=== PATIENT | female | born 1975 | race American Indian/Alaskan Native ===

== ENCOUNTER 2017-10-07 04:21 | Emergency (ER) | payer BC, MEDICAID ==
[2017-10-07 05:13] LABS: Basophils % (Auto) 0.2 % (0.0-1.8); Eosinophils # (Auto) 0.4 K/mm3 (0.0-0.4); Eosinophils % (Auto) 5.6 % (0.0-4.3); Hematocrit 36.9 % (30.3-42.9); Hemoglobin 12.2 gm/dl (10.1-14.3); Lymphocytes # (Auto) 2.1 K/mm3 (1.2-5.4); Lymphocytes % (Auto) 32.4 % (13.4-35.0); Mean Corpuscular HGB Conc 33 % (30-34); Mean Corpuscular Hemoglobin 29 pg (28-32); Mean Corpuscular Volume 86 fl (79-97); Monocytes # (Auto) 0.7 K/mm3 (0.0-0.8); Monocytes % (Auto) 11.5 % (0.0-7.3); Platelet Count 265 K/mm3 (140-440); Red Blood Count 4.27 M/mm3 (3.65-5.03); Red Cell Distribution Width 16.4 % (13.2-15.2)
[2017-10-07 05:28] LABS: BUN/Creatinine Ratio 14; Blood Urea Nitrogen 10 mg/dL (7-17); Calcium 8.9 mg/dL (8.4-10.2); Hemolysis Index 2
--- NOTE | 2017-10-07 06:18 | XRay Report ---
FINAL REPORT EXAM: XR RIBS UNILAT 2V LT HISTORY: mid back and rib pain, pain on deep breaths TECHNIQUE: Two views of the left ribs were obtained. FINDINGS: There is no evidence acute rib fracture or pleural effusion. There is no evidence of pneumothorax. IMPRESSION: Negative exam.
--- NOTE | 2017-10-07 11:38 | Emergency Department Report ---
HPI - General Chief Complaint: Back Pain/Injury Time Seen by Provider: 10/07/17 11:19 - HPI HPI: This is a 42-year-old female well-nourished well-developed here complaining of back pain which started Friday. She said pain left upper back and rib cage. It is worse when touched. She reports some pain with breathing in. Denies any chest pain, shortness of breath, fever or chills. Reports some abdominal pain to left upper quadrant and also epigastric area. She denies any nausea or vomiting. Denies any personal or family history of blood clot. Denies numbness onto her legs. Denies any urinary burning and frequency urgency. She reports that she feels bloated but says she has normal bowel movement and that she feels bloated when she eats and have increased pressure in her back. Pain is 8 out of 10 and worse to touch. [id number] medications not helping. Past medical history of hypertension. Denies any history of heart disease. Denies any chest pain. Denies taking control. Denies any travel long distance recently for more than 3 hours. Last menstrual period was 09/18/2017. Denies any vaginal bleeding or discharge ED Past Medical Hx - Past Medical History Previous Medical History?: Yes Hx Hypertension: Yes Additional medical history: gastric ulcers, PUD - Surgical History Past Surgical History?: Yes Additional Surgical History: tubal ligation. - Family History Family history: hypertension - Social History Smoking Status: Never Smoker Substance Use Type: None - Medications Home Medications: Home Medications Medication Instructions Recorded Confirmed Last Taken Type Dicyclomine [Bentyl] 20 mg PO QID #20 tablet 10/13/13 Unknown Rx Docusate Sodium [Colace] 100 mg PO BID PRN #30 capsule 10/13/13 Unknown Rx Famotidine [Pepcid] 40 mg PO QHS #30 tablet 10/13/13 Unknown Rx Cyclobenzaprine [Flexeril 10mg] 10 mg PO TID PRN #30 tablet 03/22/14 Unknown Rx Ibuprofen [Motrin] 800 mg PO Q8H #30 tablet 03/22/14 Unknown Rx traMADol [Ultram 50 MG tab] 50 mg PO Q6HR PRN #20 tablet 03/22/14 Unknown Rx HYDROcodone/APAP 5-325 [[place] 1 each PO Q6HR PRN #10 tablet 07/01/15 Unknown Rx 5/325] Ketorolac [Toradol] 10 mg PO Q6H PRN #20 tablet 07/01/15 Unknown Rx Nitrofurantoin [place]/M-Cryst 100 mg PO Q12HR 7 Days capsule 07/01/15 Unknown Rx [Macrobid CAP] Acetaminophen/Codeine [Tylenol #3] 1 tab PO Q6H PRN #15 tab 08/07/15 Unknown Rx Guaifenesin/Pseudoephedrne HCl 1 each PO Q12HR #10 tab.er.12h 08/07/15 Unknown Rx [Mucinex D ER 600-60 mg Tablet] Levofloxacin [Levaquin] 750 mg PO QDAY #5 tablet 08/07/15 Unknown Rx Ibuprofen [Motrin] 800 mg PO Q8HR PRN #20 tablet 07/09/16 Unknown Rx traMADol [Ultram] 50 mg PO Q6HR PRN #12 tablet 10/07/17 Unknown Rx ED Review of Systems ROS: Stated complaint: BACK PAIN Other details as noted in HPI Comment: All other systems reviewed and negative Eyes: denies: vision change ENT: denies: throat pain Respiratory: no symptoms reported Cardiovascular: denies: chest pain, palpitations, dyspnea on exertion, edema, syncope, paroxysmal nocturnal dyspnea Gastrointestinal: abdominal pain, other (bloated). denies: nausea, vomiting, diarrhea, constipation, hematemesis, melena, hematochezia Genitourinary: denies: urgency, dysuria, frequency, hematuria, discharge, abnormal menses, dyspareunia Musculoskeletal: back pain. denies: joint swelling, arthralgia, myalgia Skin: denies: rash Neurological: denies: headache, weakness, numbness, paresthesias, confusion, abnormal gait, vertigo Physical Exam - Physical Exam Vital Signs: Vital Signs 10/07/17 10/07/17 04:27 08:08 Temperature 98.3 F 98.4 F Pulse Rate 79 68 Respiratory 18 20 Rate Blood Pressure 136/96 130/89 O2 Sat by Pulse 99 100 Oximetry General: This is a 42-year-old female well-nourished well-developed in no acute distress. Physical Exam: Head: Normocephalic, atraumatic, no abrasion, no bruising and no contusion. Eyes: Biateral pupils equal and reactive to light, bilateral EOM intact.. Bilateral conjunctival and sclera without injection, normal accommodation. No nystagmus Mouth: Moist, no pharyngeal exudate or erythema. No peritonsillar abscesses. Uvula is midline and oral airways patent. Neck: Supple, No Cervical adenopathy, full range of motion and no C-spine tenderness. No swelling or tracheal deviation normal reflexes Cardiovascular: S1, S2. Regular rate and rhythm. No murmur. Capillary refill is less then 3 seconds. Lungs: Clear to auscultate bilaterally. No rhonchi, wheezes or rales. No chest wall tenderness. No chest contusion. No bruising to chest. MSK: Strength 5/5 in all extremities. No joint deformity or crepitus. Normal inspection. Full range of motion to all extremities. No laceration, abrasion or ecchymotic area noted. Patient able to fully flex and extend bilateral knees without any difficulties. Bilateral knees nontender to palpate. Abdomen: Non-tender to palpate in all quadrants, no guarding or rebound tenderness, positive bowel sounds in all quadrants. No CVA tenderness. No hernia, bruit or mass. No rigidity or distention. Extremities: No clubbing, cyanosis or edema. +2 pulses. No neurovascular compromise Skin: Clean, dry and intact. No rash or lesions. Neurological: GCS at 15, Pt is alert and oriented 3 speech is clear . 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 Normal gait. Negative Romberg and no pronator drift. Normal Reflexes. No motor or sensory deficit Back: No vertebral tenderness, no paraspinal tenderness. Ambulates without any difficulties. Psych: Normal mood and behavior ED Course Vital Signs 10/07/17 10/07/17 04:27 08:08 Temperature 98.3 F 98.4 F Pulse Rate 79 68 Respiratory 18 20 Rate Blood Pressure 136/96 130/89 O2 Sat by Pulse 99 100 Oximetry - Reevaluation(s) Reevaluation #1: 10/07/17 15:19 Patient stable, Toradol 60 mg IM given and pain is controlled. She was updated on lab results, xray and ultrasound results. Tolerating fluids well ED Medical Decision Making - Lab Data Result diagrams: 10/07/17 04:58 10/07/17 04:58 Lab Results 02/20/18 02/20/18 02/20/18 Range/Units 04:58 04:58 04:58 WBC 6.4 (4.5-11.0) K/mm3 RBC 4.27 (3.65-5.03) M/mm3 Hgb 12.2 (10.1-14.3) gm/dl Hct 36.9 (30.3-42.9) % MCV 86 (79-97) fl MCH 29 (28-32) pg MCHC 33 (30-34) % RDW 16.4 H (13.2-15.2) % Plt Count 265 (140-440) K/mm3 Lymph % (Auto) 32.4 (13.4-35.0) % [place] % (Auto) 11.5 H (0.0-7.3) % Eos % (Auto) 5.6 H (0.0-4.3) % Baso % (Auto) 0.2 (0.0-1.8) % Lymph # 2.1 (1.2-5.4) K/mm3 [place] # 0.7 (0.0-0.8) K/mm3 Eos # 0.4 (0.0-0.4) K/mm3 Baso # 0.0 (0.0-0.1) K/mm3 Seg Neutrophils % 50.3 (40.0-70.0) % Seg Neutrophils # 3.2 (1.8-7.7) K/mm3 Sodium 142 (137-145) mmol/L Potassium 4.4 (3.6-5.0) mmol/L Chloride 105.8 (98-107) mmol/L Carbon Dioxide 25 (22-30) mmol/L Anion Gap 16 mmol/L BUN 10 (7-17) mg/dL Creatinine 0.7 (0.7-1.2) mg/dL Estimated GFR > 60 ml/min BUN/Creatinine Ratio 14 % Glucose 91 (65-100) mg/dL Calcium 8.9 (8.4-10.2) mg/dL HCG, Qual Negative (Negative) Urine Color (Yellow) Urine Turbidity (Clear) Urine pH (5.0-7.0) Ur Specific [place] (1.003-1.030) Urine Protein (Negative) mg/dL Urine Glucose (UA) (Negative) mg/dL Urine Ketones (Negative) mg/dL Urine Blood (Negative) Urine Nitrite (Negative) Urine Bilirubin (Negative) Urine Urobilinogen (<2.0) mg/dL Ur Leukocyte Esterase (Negative) Urine WBC (Auto) (0.0-6.0) /HPF Urine RBC (Auto) (0.0-6.0) /HPF U Epithel Cells (Auto) (0-13.0) /HPF Urine Mucus /HPF 10/07/17 Range/Units 11:31 WBC (4.5-11.0) K/mm3 RBC (3.65-5.03) M/mm3 Hgb (10.1-14.3) gm/dl Hct (30.3-42.9) % MCV (79-97) fl MCH (28-32) pg MCHC (30-34) % RDW (13.2-15.2) % Plt Count (140-440) K/mm3 Lymph % (Auto) (13.4-35.0) % [place] % (Auto) (0.0-7.3) % Eos % (Auto) (0.0-4.3) % Baso % (Auto) (0.0-1.8) % Lymph # (1.2-5.4) K/mm3 [place] # (0.0-0.8) K/mm3 Eos # (0.0-0.4) K/mm3 Baso # (0.0-0.1) K/mm3 Seg Neutrophils % (40.0-70.0) % Seg Neutrophils # (1.8-7.7) K/mm3 Sodium (137-145) mmol/L Potassium (3.6-5.0) mmol/L Chloride (98-107) mmol/L Carbon Dioxide (22-30) mmol/L Anion Gap mmol/L BUN (7-17) mg/dL Creatinine (0.7-1.2) mg/dL Estimated GFR ml/min BUN/Creatinine Ratio % Glucose (65-100) mg/dL Calcium (8.4-10.2) mg/dL HCG, Qual (Negative) Urine Color Yellow (Yellow) Urine Turbidity Clear (Clear) Urine pH 5.0 (5.0-7.0) Ur Specific [place] 1.019 (1.003-1.030) Urine Protein <15 mg/dl (Negative) mg/dL Urine Glucose (UA) Neg (Negative) mg/dL Urine Ketones Neg (Negative) mg/dL Urine Blood Neg (Negative) Urine Nitrite Neg (Negative) Urine Bilirubin Neg (Negative) Urine Urobilinogen < 2.0 (<2.0) mg/dL Ur Leukocyte Esterase Neg (Negative) Urine WBC (Auto) 1.0 (0.0-6.0) /HPF Urine RBC (Auto) 4.0 (0.0-6.0) /HPF U Epithel Cells (Auto) 1.0 (0-13.0) /HPF Urine Mucus 2+ /HPF - EKG Data -: EKG Interpreted by Me (attending physician) EKG shows normal: sinus rhythm (71 bpm) Rate: normal - EKG Data Interpretation: no acute changes - Radiology Data Radiology results: report reviewed X-ray rib detail reveals no acute findings Abdominal ultrasound reveals patient with contracted gallbladder were reported of not eating in within the last 6 hours of having ultrasound. Radiologist's report this may reflect functional ability of the gallbladder. There are no abnormalities noted to the pancreas, IVC, ureter, liver,, bilateral, right kidney and pancreas. No ultrasound evidence of gallbladder structural abnormalities or gallstones. - Medical Decision Making ED course: Patient here for lt upper back/upper abdominal pain and rib pain. Physical findings for intact back and neurological exam. Mild tenderness to mild right upper quadrant abdomen otherwise exam normal. Labs are stable, Lt rib xray normal and Ultrasound upper abdomen limited reveal contracted gallbladder which radiologist is suggesting congenital since patient has not eaten 6 hours prior to U/S per patient. Abdominal ultrasound reveals patient with contracted gallbladder were reported of not eating in within the last 6 hours of having ultrasound. Radiologist's report this may reflect functional ability of the gallbladder. There are no abnormalities noted to the pancreas, IVC, ureter, liver,, bilateral, right kidney and pancreas. No ultrasound evidence of gallbladder structural abnormalities or gallstones. See lab and radiology section for details. Patient was given Toradol 60 mg im in ED. She is able to tolerate oral liquid in ed. Vss afeb. Diagnosis and treatment plan with followup emplaned to patient and she voiced understanding. Discharged home with prescription for ultram and followup with [facility]. Critical care attestation.: If time is entered above; I have spent that time in minutes in the direct care of this critically ill patient, excluding procedure time. 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 Take medication as prescribed. Increase her fluid intake Prescriptions: traMADol [Ultram] 50 mg PO Q6HR PRN #12 tablet PRN Reason: Pain Referrals: [facility] [Outside] - 10/08/17 [facility] [Provider Group] - 24 Hours Forms: Work/School Release Form(ED)
[2017-10-07 11:41] VITALS: BP 129/88
[2017-10-07 12:27] LABS: Bilirubin,Urine NEG (Negative); Blood,Urine NEG (Negative); Color,Urine Yellow (Yellow); Mucus,Urine 2+ /HPF; Nitrite,Urine NEG (Negative); Protein,Urine <15 mg/dL mg/dL (Negative); Urobilinogen,Urine < 2.0 mg/dL (<2.0)
[2017-10-07] MEDS ORDERED: TORADOL IM ONE (13:36)
--- NOTE | 2017-10-07 15:00 | Ultrasound Report ---
FINAL REPORT EXAM: US ABDOMEN LIMITED HISTORY: upper abdominal pain radiating to back TECHNIQUE: Ultrasound examination of the abdomen PRIORS: AP CT 07/01/2015 FINDINGS: Normal-appearing visible portion of IVC, aorta, liver, common bile duct, right kidney, and pancreas. Gallbladder appears contracted despite patient reporting 6 hours NPO status. No gallbladder wall thickening or pericholecystic fluid. No ultrasound evidence of gallstones. IMPRESSION: Gallbladder appears contracted despite patient reporting 6 hours NPO status. This may reflect functional abnormality of the gallbladder. Differential includes developmental variation. No ultrasound evidence of gallbladder structural abnormality.
== END 2017-10-07 15:42 | disposition home or self-care (01) ==
LOC: ED 04:21
DX: R14.0 Abdominal distension (gaseous) (principal); I10 Essential (primary) hypertension
CPT/HCPCS: 36415; 71100; 76705; 80048; 81001; 84703; 85025; 93005; 93010; 96372; 99284; J1885

== ENCOUNTER 2019-11-29 08:12 | Emergency (ER) | payer SELFPAY ==
[2019-11-29 08:22] VITALS: BP 149/99
--- NOTE | 2019-11-29 11:50 | Emergency Department Report ---
ED Back Pain/Injury HPI - General Chief Complaint: Back Pain/Injury Stated Complaint: BACK/HIP/LEG PAIN Time Seen by Provider: 11/29/19 11:15 Source: patient Limitations: No Limitations - History of Present Illness Initial Comments: 44-year-old -Filipino female with a history of chronic back pain comes in for acute on chronic back pain that radiates down her legs. Patient admits that she has sciatica but reports that this pain is the worst. Patient reported that she had urinated on herself while she was trying to get up to make it to the bathroom. Patient reports she has not had any bowel movement in 1 week. Patient denies any nausea vomiting diarrhea or vaginal bleeding. Patient states that she has been using ice therapy and heat therapy Tylenol ibuprofen and tramadol which she reports has not helped. Patient's last menstrual period was 10/23/2019. Patient denies any dysuria. Patient denies any recent trauma. MD Complaint: back pain Onset/Timin -: week(s) Similar Symptoms Previously: Yes Radiation: left leg, right leg Severity: severe Quality: sharp Consistency: constant Improves With: none Worsens With: movement Associated Symptoms: denies other symptoms - Related Data Previous Rx's Medication Instructions Recorded Last Taken Type Dicyclomine [Bentyl] 20 mg PO QID #20 tablet 10/13/13 Unknown Rx Docusate Sodium [Colace] 100 mg PO BID PRN #30 capsule 10/13/13 Unknown Rx Famotidine [Pepcid] 40 mg PO QHS #30 tablet 10/13/13 Unknown Rx Cyclobenzaprine [Flexeril 10mg] 10 mg PO TID PRN #30 tablet 03/22/14 Unknown Rx Ibuprofen [Motrin] 800 mg PO Q8H #30 tablet 03/22/14 Unknown Rx traMADoL [Ultram 50 MG tab] 50 mg PO Q6HR PRN #20 tablet 03/22/14 Unknown Rx HYDROcodone/APAP 5-325 [[place] 1 each PO Q6HR PRN #10 tablet 07/01/15 Unknown Rx 5/325] Ketorolac [Toradol] 10 mg PO Q6H PRN #20 tablet 07/01/15 Unknown Rx Nitrofurantoin [place]/M-Cryst 100 mg PO Q12HR 7 Days capsule 07/01/15 Unknown Rx [Macrobid CAP] Acetaminophen/Codeine [Tylenol #3] 1 tab PO Q6H PRN #15 tab 08/07/15 Unknown Rx Guaifenesin/Pseudoephedrne HCl 1 each PO Q12HR #10 tab.er.12h 08/07/15 Unknown Rx [Mucinex D ER 600-60 mg Tablet] levoFLOXacin [Levaquin] 750 mg PO QDAY #5 tablet 08/07/15 Unknown Rx Ibuprofen [Motrin] 800 mg PO Q8HR PRN #20 tablet 07/09/16 Unknown Rx traMADoL [Ultram] 50 mg PO Q6HR PRN #12 tablet 10/07/17 Unknown Rx Allergies Allergy/AdvReac Type Severity Reaction Status Date / Time No Known Allergies Allergy Unverified 07/01/15 13:46 ED Review of Systems ROS: Stated complaint: BACK/HIP/LEG PAIN Other details as noted in HPI Comment: All other systems reviewed and negative ED Past Medical Hx - Past Medical History Previous Medical History?: Yes Hx Hypertension: Yes Additional medical history: gastric ulcers, PUD - Surgical History Past Surgical History?: Yes Additional Surgical History: tubal ligation. - Social History Smoking Status: Never Smoker Substance Use Type: None - Medications Home Medications: Home Medications Medication Instructions Recorded Confirmed Last Taken Type Dicyclomine [Bentyl] 20 mg PO QID #20 tablet 10/13/13 Unknown Rx Docusate Sodium [Colace] 100 mg PO BID PRN #30 capsule 10/13/13 Unknown Rx Famotidine [Pepcid] 40 mg PO QHS #30 tablet 10/13/13 Unknown Rx Cyclobenzaprine [Flexeril 10mg] 10 mg PO TID PRN #30 tablet 03/22/14 Unknown Rx Ibuprofen [Motrin] 800 mg PO Q8H #30 tablet 03/22/14 Unknown Rx traMADoL [Ultram 50 MG tab] 50 mg PO Q6HR PRN #20 tablet 03/22/14 Unknown Rx HYDROcodone/APAP 5-325 [[place] 1 each PO Q6HR PRN #10 tablet 07/01/15 Unknown Rx 5/325] Ketorolac [Toradol] 10 mg PO Q6H PRN #20 tablet 07/01/15 Unknown Rx Nitrofurantoin [place]/M-Cryst 100 mg PO Q12HR 7 Days capsule 07/01/15 Unknown Rx [Macrobid CAP] Acetaminophen/Codeine [Tylenol #3] 1 tab PO Q6H PRN #15 tab 08/07/15 Unknown Rx Guaifenesin/Pseudoephedrne HCl 1 each PO Q12HR #10 tab.er.12h 08/07/15 Unknown Rx [Mucinex D ER 600-60 mg Tablet] levoFLOXacin [Levaquin] 750 mg PO QDAY #5 tablet 08/07/15 Unknown Rx Ibuprofen [Motrin] 800 mg PO Q8HR PRN #20 tablet 07/09/16 Unknown Rx traMADoL [Ultram] 50 mg PO Q6HR PRN #12 tablet 10/07/17 Unknown Rx ED Physical Exam - General Limitations: No Limitations General appearance: alert, in no apparent distress - Head Head exam: Present: atraumatic, normocephalic - Cardiovascular Cardiovascular Exam: Present: regular rate, normal rhythm. Absent: systolic murmur, diastolic murmur, rubs, gallop - GI/Abdominal GI/Abdominal exam: Present: soft, normal bowel sounds - Back Exam Back exam: Present: normal inspection, full ROM - Neurological Exam Neurological exam: Present: alert, oriented X3 - Psychiatric Psychiatric exam: Present: normal affect, normal mood - Skin Skin exam: Present: warm, dry, intact, normal color. Absent: rash ED Course Vital Signs 11/29/19 08:18 Temperature 98.5 F Pulse Rate 84 Respiratory 20 Rate Blood Pressure 149/99 O2 Sat by Pulse 100 Oximetry ED Medical Decision Making - Radiology Data Radiology results: report reviewed Referring Physician:BENJA AGUILARPatient Name:ELISA CHAMBERSPatient ID:[id number] of :[id number]:FemaleAccession:[id number] Date:[id number] Status:Finalized Findings [facility] [address] [place] [address] XRay Report Signed Patient: ELISA CHAMBERS MR#: [id number] : 1975 Acct:[id number] Age/Sex: 44 / F ADM Date: 11/29/19 Loc: ED Attending Dr: Ordering Physician: JOHNSON CURTIS Date of Service: 11/29/19 Procedure(s): XR spine lumbosacral 2-3V Accession Number(s): [id number] cc: JOHNSON CURTIS Fluoro Time In Minutes: LUMBAR SPINE 3 VIEWS INDICATION / CLINICAL INFORMATION: back pain. COMPARISON: None available. FINDINGS: VERTEBRAE: No acute fracture. No significant malalignment. DISC SPACES / FACET JOINTS:No significant abnormality. PARASPINAL SOFT TISSUES:No significant abnormality. Signer Name: Pako Garza MD Signed: 11/29/2019 12:48 PM Workstation Name: [id number] Transcribed By: RODOLFO Dictated By: Pako Garza MD Electronically Authenticated By: Pako Garza MD Signed Date/Time: 11/29/191247 DD/ 47 TD/TT: - Medical Decision Making 44-year-old -Filipino female with a history of chronic back pain comes in for acute on chronic back pain that radiates down her legs. Patient admits that she has sciatica but reports that this pain is the worst. Patient reported that she had urinated on herself while she was trying to get up to make it to the bathroom. Patient reports she has not had any bowel movement in 1 week. Patient denies any nausea vomiting diarrhea or vaginal bleeding. Patient states that she has been using ice therapy and heat therapy Tylenol ibuprofen and tramadol which she reports has not helped. Patient's last menstrual period was 10/23/2019. Patient denies any dysuria. Patient denies any recent trauma. Urinalysis urine test and x-ray of lower back has been ordered. Urinalysis is negative for any acute findings x-ray is negative for any fracture subluxation. Patient can follow-up with her primary care provider. For pain management. Critical care attestation.: If time is entered above; I have spent that time in minutes in the direct care of this critically ill patient, excluding procedure time. ED Disposition Clinical Impression: Chronic low back pain with bilateral sciatica Disposition: - TO HOME OR SELFCARE Is pt being admited?: No Does the pt Need Aspirin: No Condition: Stable Additional Instructions: Urinalysis is negative for any acute findings x-ray is negative for any fracture subluxation. Patient can follow-up with her primary care provider. Tylenol or ibuprofen as needed for pain management. Referrals: PRIMARY CARE, [Primary Care Provider] - 3-5 Days UNRULY MCCARTHY MD [Staff Physician] - 3-5 Days Forms: Work/School Release Form(ED)
[2019-11-29] MEDS ORDERED: dexAMETHasone 20 MG/5 ML VIAL IM ONE (12:07)
[2019-11-29] MEDS ORDERED: KETOROLAC 30 MG/1 ML INJ IM ONE (12:07)
[2019-11-29 12:13] LABS: Bilirubin,Urine NEG (Negative); Blood,Urine NEG (Negative); Color,Urine Yellow (Yellow); HCG Qualitative,Urine Negative (Negative); Mucus,Urine FEW /HPF; Protein,Urine <15 mg/dL mg/dL (Negative); Urobilinogen,Urine < 2.0 mg/dL (<2.0); WBC,Urine < 1.0 /HPF (0.0-6.0)
--- NOTE | 2019-11-29 12:53 | XRay Report ---
LUMBAR SPINE 3 VIEWS INDICATION / CLINICAL INFORMATION: back pain. COMPARISON: None available. FINDINGS: VERTEBRAE: No acute fracture. No significant malalignment. DISC SPACES / FACET JOINTS:No significant abnormality. PARASPINAL SOFT TISSUES:No significant abnormality. Signer Name: Pako Garza MD Signed: 11/29/2019 12:48 PM Workstation Name: [id number]
== END 2019-11-29 13:07 | disposition home or self-care (01) ==
LOC: ED 08:12
DX: M54.32 Sciatica, left side (principal); M54.31 Sciatica, right side; G89.29 Other chronic pain; I10 Essential (primary) hypertension; Z79.899 Other long term (current) drug therapy; Z98.51 Tubal ligation status
CPT/HCPCS: 72100; 81001; 81025; 96372; 99283; J1100; J1885